=== PATIENT | male | born 1985 | race Caucasian/White ===

== ENCOUNTER 2023-12-11 21:29 | Emergency (ER) | payer BC ==
[2023-12-11] MEDS: Ibuprofen 400 MG Tab PO ONE (21:56)
== END 2023-12-11 23:05 | disposition home or self-care (01) ==
LOC: MW.ED 21:29
DX: M79.671 Pain in right foot (principal); Z79.899 Other long term (current) drug therapy
CPT/HCPCS: 73630; 99283; A9270

== ENCOUNTER 2024-04-12 22:01 | Emergency (ER) | payer MEDICAID ==
[2024-04-12 22:27] LABS: BASOPHILS ABSOLUTE AUTO 0.02 K/uL (0.00-0.20); BASOPHILS PERCENT AUTO 0.4 % (0.0-1.0); EOSINOPHILS ABSOLUTE AUTO 0.19 K/uL (0.00-0.45); EOSINOPHILS PERCENT AUTO 4.1 % (0.0-6.0); HEMATOCRIT 40.8 % (42.0-52.0); HEMOGLOBIN 14.1 g/dL (14.0-18.0); IMMATURE GRAN ABSOLUTE AUTO 0.01 K/uL (0.00-0.05); IMMATURE GRAN PERCENT AUTO 0.2 % (0.0-0.4); LYMPHOCYTES ABSOLUTE AUTO 1.78 K/uL (1.00-4.80); LYMPHOCYTES PERCENT AUTO 38.4 % (24.0-44.0); MEAN CORPUSCULAR HGB CONC 34.6 g/dL (32.0-36.0); MEAN CORPUSCULAR VOLUME 81.1 fL (83.0-99.0); MEAN PLATELET VOLUME 9.1 fL (9.4-12.4); MONOCYTES ABSOLUTE AUTO 0.33 K/uL (0.00-0.80); MONOCYTES PERCENT AUTO 7.1 % (0.0-8.0); NEUTROPHILS PERCENT AUTO 49.8 % (41.0-71.0); PLATELET COUNT,PLT 166 K/uL (150-400); RED BLOOD CELL COUNT 5.03 M/uL (4.52-5.90); WHITE BLOOD CELL COUNT,WBC 4.63 K/uL (3.9-11.3)
[2024-04-12 22:29] LABS: APPEARANCE,URINE CLEAR; BILIRUBIN,URINE NEGATIVE (NEGATIVE); COLOR,URINE YELLOW; GLUCOSE,URINE NEGATIVE (NEGATIVE); KETONES,URINE NEGATIVE (NEGATIVE); LEUKOCYTE ESTERASE,URINE NEGATIVE (NEGATIVE); NITRITE,URINE NEGATIVE (NEGATIVE); OCCULT BLOOD,URINE NEGATIVE (NEGATIVE); PH,URINE 6.5 (5.0-8.0); PROTEIN,URINE NEGATIVE (NEGATIVE); UROBILINOGEN,URINE 0.2 EU/dL (<2.0)
[2024-04-12] MEDS: Sodium Chloride 0.9% 10 ML Syringe FLUSH PRN (22:30)
[2024-04-12] MEDS: Famotidine 20 MG/2 ML SDV IVPUSH ONE (22:30)
[2024-04-12] MEDS: fentaNYL 50 MCG/ML SDV IVPUSH ONE (22:30)
[2024-04-12] MEDS: Sodium Chloride 0.9% 2.5 ML Syringe FLUSH PRN (22:30)
[2024-04-12 22:49] LABS: A/G RATIO 1.2 (0.9-1.6); ALBUMIN 3.7 g/dL (3.4-5.0); BILIRUBIN TOTAL 0.3 mg/dL (0.2-1.0); CALCIUM 8.5 mg/dL (8.5-10.1); CARBON DIOXIDE,CO2 26.5 mmol/L (21.0-32.0); EST CRCL DRUG DOSING (CG) 110.97 mL/min; PROTEIN TOTAL,TP 6.9 g/dL (6.4-8.2)
[2024-04-12] MEDS: Iopamidol 755 MG/ML 500 ML Multipack Bottle IVPUSH STA (23:10)
== END 2024-04-13 00:44 | disposition home or self-care (01) ==
LOC: MW.ED 22:01
DX: U07.1 COVID-19 (principal); R10.31 Right lower quadrant pain; R10.32 Left lower quadrant pain; Z75.8 Other problems related to medical facilities and other health care
CPT/HCPCS: 36415; 74177; 80053; 81003; 83690; 85025; 96374; 96375; 99284; J3010; J3490; Q9967

== ENCOUNTER 2024-12-23 19:47 | Emergency (ER) | payer MEDICAID | END 2024-12-23 20:24 | disposition left against medical advice (07) | LOC: MW.ED 19:47 | DX: Z53.21 Procedure and treatment not carried out due to patient leaving prior to being seen by health care provider (principal) ==

== ENCOUNTER 2024-12-23 23:49 | Emergency (ER) | payer SELFPAY ==
[2024-12-24] MEDS: Amoxicillin 500 MG Cap PO ONE (01:52)
[2024-12-24] MEDS: Ibuprofen 800 MG Tab PO ONE (01:52)
[2024-12-24] MEDS: Acetaminophen/HYDROcodone 325-10 MG Tab PO ONE (01:52)
== END 2024-12-24 02:13 | disposition home or self-care (01) ==
LOC: MW.ED 23:49
DX: H66.91 Otitis media, unspecified, right ear (principal); H60.501 Unspecified acute noninfective otitis externa, right ear; Z79.899 Other long term (current) drug therapy; Z75.3 Unavailability and inaccessibility of health-care facilities
CPT/HCPCS: 99282; A9270